=== PATIENT | male | born 1945 | race Caucasian/White ===

== ENCOUNTER → 2018-02-11 13:31 | Outpatient (CLI) | payer MEDICARE, SELFPAY ==
--- NOTE | 2018-02-11 13:31 | DT_ITS ---
This patient was seen during an EMR downtime February 11, 2018 - February 18, 2018. This patient may have a combination of paper and electronic documentation or all paper documentation. All documentation is viewable within the e-chart portion of [email or web address] for each patient visit.
--- NOTE | 2018-02-11 14:30 | CT_ITS ---
STUDY: CT ABDOMEN AND PELVIS WITH CONTRAST REASON FOR EXAM: Male, 72 years old. History of rectal cancer with radiation and chemotherapy. Follow-up exam. RADIATION DOSAGE (If Supplied By Facility): CTDIvol = ( 19.91 ) mGy, DLP = ( 1240.17 ) mGycm TECHNIQUE: Transaxial images were obtained from the dome of the diaphragm to the symphysis pubis with oral contrast. 100ml ml of Isovue 300 contrast was administered. Sagittal and coronal images were reconstructed. Individualized dose optimization techniques were used for this CT. COMPARISON: 08/23/2017. FINDINGS: The visualized portions of the lung bases demonstrate again 6 mm noncalcified nodule in the right middle lobe unchanged since prior examination. The visualized portions of the heart are within normal limits. There is a vague 4 mm in size low-density lesion in the right lobe of the liver seen on image 19 series 2 and difficult to characterize and may represent small cyst. Normal gallbladder and extrahepatic biliary system. Normal spleen. There is a 9 mm low-density lesion in the distal tip of the pancreas unchanged since previous examination of 2016 and likely representing small benign cyst. There is another lesion in the tail of the pancreas measuring about 6 mm again unchanged. Please note that the tail of the pancreas and the previous examinations is suboptimally visualized. The adrenal glands are unchanged. There again is a small cyst in the upper pole of the right kidney unchanged. There is another small low-density lesion/cyst in the lower pole right kidney again unchanged. Mild right perinephric stranding is seen unchanged. There again is a 2.5 cm cyst in the upper pole of the left kidney. There is a 1.5 cm lesion in the posterior aspect of the left kidney unchanged since the prior examination. It could represent hyperdense cyst. Correlation with renal ultrasound is recommended. Normal visualized stomach. Normal small intestine. There is fecal retention. Surgical sutures in the rectosigmoid junction is again seen. There again is mild presacral stranding around the rectal region unchanged since prior examination. There is non-visualization of the appendix. There are mild atherosclerotic calcifications of the abdominal aorta. There is no evidence of aneurysm. Normal inferior vena cava. Few small retroperitoneal nodes are again seen unchanged. Normal urinary bladder. The prostate is prominent in size. There is a small umbilical hernia containing fat. The osseous structures are unchanged. There are mild degenerative changes in the low density of L5 vertebra unchanged. The osseous structures are better evaluated by bone scan. CT/Abdomen/Pelvis WITH Contrast IMPRESSION: No significant change since previous examination. Persistent mild pericecal stranding unchanged prior examination and may be related to radiation therapy. No new masses are seen. Persistent small left renal lesion stable since the previous exam and may represent hyperdense cyst. Correlation with renal ultrasound might be of value. Small liver lesion which may represent small cyst difficult to characterize on this exam. Further follow-up exam in 4-6 months is recommended. Electronically Signed: Maico Mckeon MD at 9:02 EDT Tel , Service support ,
[2018-02-16 12:35] LABS: ALB/GLOB Ratio 1.2 RATIO (0.9-2.4); AST(SGOT) 24 U/L (15-37); Alanine Aminotransfer ALT/SGPT 38 U/L (16-61); Albumin, Serum 4.1 g/dL (3.2-5.0); Alkaline Phosphatase 51 U/L (45-117); Anion Gap 7 (5-15); BUN 14 mg/dL (7-18); BUN/Creat Ratio 16.7 RATIO (10-20); Calcium,Total 8.8 mg/dL (8.5-10.1); Chloride 104 mmol/L (98-107); Creatinine, Serum 0.84 mg/dL (0.70-1.30); EST Glomerular Filtration Rate 96 mL/min (>60); Est Glom Filt Rate - Afr Amer 116 mL/min (>60); Globulin 3.3 g/dL (2.2-4.2); Glucose 94 mg/dL (74-106); Protein, Total 7.4 g/dL (6.4-8.2); Sodium Level 140 mmol/L (136-145)
[2018-02-16 12:38] LABS: Hematocrit 41.5 % (40-54); Hemoglobin 13.9 g/dl (13.0-16.5); Mean Corp Hgb Conc 33.5 g/gl (32-36); Mean Corpuscular Hgb 33.7 pg (27.0-32.0); Mean Corpuscular Volume 100.7 fL (80-94); Platelet Count 177 K/mm3 (150-450); RBC Distribution Width CV 14.5 % (11.6-14.6); RBC Distribution Width SD 52.4 fl (35.1-43.9); Red Blood Count 4.12 M/mm3 (4.6-6.2); White Blood Count 5.5 K/mm3 (4.4-11.0)
[2018-02-16 12:39] LABS: Absolute Lymphocyte Count 1.22 X10^3/ul (0.83-4.51); Absolute Neutrophil Count 2.9 X10^3/uL (2.0-7.7); Basophil# 0.05 X10^3/uL; Basophil% 0.9 % (0-1); Eosinophil# 0.21 X10^3/uL; Eosinophils% 3.8 % (0-5); Lymphocyte # 1.22 X10^3/ul (4.0); Lymphocyte % 22.3 % (19-41); Mean Platelet Vol. 12.4 fl (6.2-12.0); Monocyte# 1.05 X10^3/uL; Monocyte% 19.2 % (0-10); Neutrophil # 2.91 X10^3/uL (2.7-7.7); Neutrophil % 53.3 % (47-70); POSITIVE COUNT NO; POSITIVE DIFFERENTIAL NO; POSITIVE MORPHOLOGY NO
[2018-02-18 18:26] LABS: Carcinoembryonic Antigen 2139 1.3
[2018-02-24 14:39] LABS: CREATININE FINGERSTICK 1.06 mg/dL (0.70-1.30)
== END ==
PROVIDERS: Family Provider Preventive Medicine Occupational Medicine; PCP Preventive Medicine Occupational Medicine; Visit Provider Internal Medicine Medical Oncology
DX: C20 Malignant neoplasm of rectum (principal); N28.9 Disorder of kidney and ureter, unspecified; K76.9 Liver disease, unspecified
CPT/HCPCS: 74177; 80053; 82378; 85025; Q9967; A4216

== ENCOUNTER → 2018-05-23 06:23 | Outpatient (CLI) | payer MEDICARE, SELFPAY ==
--- NOTE | 2018-05-23 06:37 | MRI_ITS ---
STUDY: MRI BRAIN WITH AND WITHOUT CONTRAST REASON FOR EXAM: Male, 72 years old. Vertigo. Balance issues. History of colon carcinoma. TECHNIQUE: Standardized multiplanar fat and water weighted pulse sequences were obtained. 10 ml of Gadavist contrast material was administered intravenously for the contrast portion of the examination. COMPARISON: None. FINDINGS: No restricted diffusion to suspect acute or subacute ischemic infarct. No remote cortical-based ischemic infarct and no old lacunar ischemic infarcts. Normal ventricles and cisterns. No communicating or noncommunicating hydrocephalus. Multiple small subcortical white matter T2 FLAIR hyperintensity foci in both cerebral hemispheres are nonspecific. Considering his age, these may be secondary to microvascular disease. No midline shift and no mass effects. Normal bilateral basal ganglia. Normal thalami. There is no extra-axial fluid accumulation. Normal flow voids within the major intracranial circulation suggesting patency by spin echo criteria. Normal venous enhancement. There is no enhancing intra-axial or extra-axial abnormality. Normal sella turcica, pituitary gland, infundibular stalk, optic chiasm and hypothalamus. Normal tectal plate and pineal gland. Normal midbrain, prudencio and medulla. Normal cerebellum. Normal basal cisterns. Normal bilateral temporal bones. Normal bilateral internal auditory canals. No demonstrated orbital abnormality, within the constraints of a routine brain study. Normal visualized paranasal sinuses. Normal calvarium and skull base. Normal visualized soft tissue structures. C2-C3 posterior annular bulging disc with mild central canal stenosis. MRI/Brain W/WO Contrast IMPRESSION: 1. No MRI evidence of intracranial metastatic disease, acute ischemic infarct, subacute ischemic infarct or acute intracranial abnormality. 2. Small nonspecific subcortical white matter T2 FLAIR hyperintensity foci in both cerebral hemispheres. Considering his age, they are presumably secondary to microvascular disease. Electronically Signed: Taiwo Gunderson MD at 14:56 EDT , Service support ,
== END ==
PROVIDERS: Family Provider Preventive Medicine Occupational Medicine; PCP Preventive Medicine Occupational Medicine; Visit Provider Preventive Medicine Occupational Medicine
DX: R42 Dizziness and giddiness (principal)
CPT/HCPCS: 70553; A9585; A4216

== ENCOUNTER → 2018-06-17 13:11 | Outpatient (CLI) | payer MEDICARE, SELFPAY ==
--- NOTE | 2018-06-17 13:13 | CT_ITS ---
STUDY: CT ABDOMEN AND PELVIS WITH CONTRAST REASON FOR EXAM: Male, 72 years old. Rectal cancer status post colon resection RADIATION DOSAGE (If Supplied By Facility): CTDIvol = ( 16.61 ) mGy, DLP = ( 1266.01 ) mGycm TECHNIQUE: Transaxial images were obtained from the dome of the diaphragm to the symphysis pubis without oral contrast. 100 ml of Isovue 300 contrast was administered. Sagittal and coronal images were reconstructed. Individualized dose optimization techniques were used for this CT. COMPARISON: February 11, 2018 FINDINGS: Tiny nodule in right lower lobe measuring 4.5 mm. The visualized portions of the heart are within normal limits. Liver is fatty infiltrated. Tiny hypoattenuated density in the right lobe which is too small to characterize.. Normal gallbladder and extrahepatic biliary system. Normal spleen. There is a tiny cyst in the pancreatic tail possibly representing postinflammatory pseudocyst or cystadenoma Normal bilateral adrenal glands. There is no evidence for renal obstruction or ureteral calculus. 2 tiny cortical cysts in the right kidney. There is a simple cyst in left kidney as well as a small hemorrhagic cyst or solid cortical nodule measuring 1.36 cm Normal visualized stomach. Normal small intestine. Diverticular changes in the sigmoid colon without evidence for acute diverticulitis. Postsurgical changes status post resection of the rectum with minor stranding in the fat.. No evidence for acute appendicitis Mild atherosclerotic changes of the aorta without evidence for aneurysm Normal inferior vena cava. Tiny subcentimeter retroperitoneal nodes likely benign utilizing CT size criteria Normal urinary bladder. Small fat-containing umbilical hernia Lumbar spine demonstrates moderate spondylosis.. No significant change since prior exam CT/Abdomen/Pelvis WITH Contrast IMPRESSION: Status post resection of the rectum.. No evidence for retroperitoneal adenopathy or hepatic metastasis Bilateral renal cysts and hemorrhagic cyst or solid nodule on the left is stable since previous study Tiny hypoattenuated density in the right lobe which too small to characterize stable since previous exam Tiny nodule in the right lower lobe unchanged in size. Electronically Signed: Taiwo Vanessa MD at 21:56 EDT , Service support ,
== END ==
PROVIDERS: Family Provider Preventive Medicine Occupational Medicine; PCP Preventive Medicine Occupational Medicine; Referring Provider Internal Medicine Medical Oncology; Visit Provider Internal Medicine Medical Oncology
DX: C20 Malignant neoplasm of rectum (principal); Z90.49 Acquired absence of other specified parts of digestive tract
CPT/HCPCS: 74177; Q9967; A4216

== ENCOUNTER → 2018-12-16 | Outpatient (CLI) | payer MEDICARE, SELFPAY ==
[2018-06-20 13:46] VITALS: BMI 34.2
--- NOTE | 2018-12-16 13:08 | CT_ITS ---
STUDY: CT ABDOMEN AND PELVIS WITH CONTRAST REASON FOR EXAM: Male, 73 years old. Follow-up examination. Patient has a history of colon carcinoma. RADIATION DOSAGE (If Supplied By Facility): CTDIvol = ( 26.6 ) mGy, DLP = ( 1866.17 ) mGycm TECHNIQUE: Transaxial images were obtained from the dome of the diaphragm to the symphysis pubis without oral contrast. 100 IV Isovue 300 was administered. Sagittal and coronal images were reconstructed. Individualized dose optimization techniques were used for this CT. COMPARISON: Comparison is made with prior study dated June 17, 2018. FINDINGS: The visualized lung bases are unremarkable. The previously seen 4 mm nodule in the anterior aspect of the right middle lobe is not included on this examination. The visualized portions of the heart are within normal limits. There is decreased attenuation of the liver consistent with steatosis. Normal gallbladder and extrahepatic biliary system. Normal spleen. Normal pancreas. There is a small, circumscribed, smooth, low attenuation right adrenal mass, consistent with an adrenal adenoma. This measures 9.2 mm. Normal left adrenal gland. Normal right kidney. Stable small left renal cysts. Normal visualized stomach. Normal small intestine. There are scattered colonic diverticula consistent with diverticulosis. Anastomosis seen at the rectosigmoid junction. The appendix is visualized and appears normal. There is scattered atherosclerotic calcification of the abdominal aorta, without a demonstrated aneurysm. Normal inferior vena cava. There is borderline retroperitoneal lymphadenopathy with enlarged nodes no greater than 10mm in the short axis diameter. Normal urinary bladder. There is a small umbilical hernia containing fat. There are degenerative changes of the visualized lumbar spine. CT/Abdomen/Pelvis WITH Contrast IMPRESSION: Stable examination. Electronically Signed: Donta Boykin, at 15:46 EDT , Service support ,
[2018-12-16 14:26] LABS: CREATININE FINGERSTICK 0.9 mg/dL (0.70-1.30)
[2018-12-16 15:00] LABS: Absolute Lymphocyte Count 1.22 X10^3/ul (0.83-4.51); Absolute Neutrophil Count 3.5 X10^3/uL (2.0-7.7); Basophil# 0.03 X10^3/uL; Basophil% 0.5 % (0-1); Eosinophil# 0.19 X10^3/uL; Eosinophils% 3.2 % (0-5); Hematocrit 41.3 % (40-54); Hemoglobin 13.8 g/dl (13.0-16.5); Lymphocyte # 1.22 X10^3/ul (4.0); Lymphocyte % 20.6 % (19-41); Mean Corp Hgb Conc 33.4 g/gl (32-36); Mean Corpuscular Hgb 33.4 pg (27.0-32.0); Mean Platelet Vol. 11.5 fl (6.2-12.0); Monocyte# 0.98 X10^3/uL; Monocyte% 16.5 % (0-10); Neutrophil # 3.47 X10^3/uL (2.7-7.7); Neutrophil % 58.5 % (47-70); POSITIVE COUNT NO; POSITIVE DIFFERENTIAL NO; POSITIVE MORPHOLOGY NO; Platelet Count 150 K/mm3 (150-450); RBC Distribution Width CV 13.7 % (11.6-14.6); RBC Distribution Width SD 49.6 fl (35.1-43.9); Red Blood Count 4.13 M/mm3 (4.6-6.2); White Blood Count 5.9 K/mm3 (4.4-11.0)
[2018-12-16 15:21] LABS: ALB/GLOB Ratio 1.2 RATIO (0.9-2.4); AST(SGOT) 30 U/L (15-37); Alanine Aminotransfer ALT/SGPT 37 U/L (16-61); Albumin, Serum 3.9 g/dL (3.2-5.0); Alkaline Phosphatase 59 U/L (45-117); Anion Gap 5 (5-15); BUN 8 mg/dL (7-18); BUN/Creat Ratio 10.9 RATIO (10-20); Calcium,Total 8.9 mg/dL (8.5-10.1); Chloride 105 mmol/L (98-107); Creatinine, Serum 0.74 mg/dL (0.70-1.30); EST Glomerular Filtration Rate 112 mL/min (>60); Est Glom Filt Rate - Afr Amer 135 mL/min (>60); Globulin 3.3 g/dL (2.2-4.2); Glucose 117 mg/dL (74-106); Potassium 3.9 mmol/L (3.5-5.1); Protein, Total 7.2 g/dL (6.4-8.2); Sodium Level 137 mmol/L (136-145)
== END | disposition home or self-care (01) ==
PROVIDERS: Family Provider Preventive Medicine Occupational Medicine; PCP Preventive Medicine Occupational Medicine; Referring Provider Internal Medicine Medical Oncology; Visit Provider Internal Medicine Medical Oncology
DX: C20 Malignant neoplasm of rectum (principal); Z85.048 Personal history of other malignant neoplasm of rectum, rectosigmoid junction, and anus
CPT/HCPCS: 74177; 80053; 85025; Q9967

== ENCOUNTER → 2019-07-07 | Outpatient (CLI) | payer MEDICARE, SELFPAY ==
[2019-06-30 13:04] VITALS: BMI 34.3
--- NOTE | 2019-07-07 09:10 | CT_ITS ---
STUDY: CT CHEST WITH CONTRAST REASON FOR EXAM: Male, 73 years old. Follow-up colon cancer. Diarrhea. Mid abdominal pain and bloating. History of colon resection and rectal tumor removal. RADIATION DOSAGE (If Supplied By Facility): CTDIvol = ( 23.08 ) mGy, DLP = ( 3687.79 ) mGycm TECHNIQUE: Transaxial imaging was performed following intravenous administration of IV Isovue 300 100mL. Multiplanar coronal and sagittal images were reformatted. Individualized dose optimization techniques were used for this CT. COMPARISON: CT of the abdomen and pelvis, July 07, 2019. CT abdomen and pelvis, August 23, 2017. FINDINGS: There is a right jugular central venous catheter with tip in the distal superior vena cava. The lungs are well expanded. There is a 5 x 3.3 mm soft tissue density in the right middle lobe best seen on image 80 of series 6. The lungs appear otherwise clear. There is no demonstrated pleural abnormality. Normal heart and pericardium. There are calcifications of the coronary arteries. Normal mediastinum. Normal hilar regions. Normal enhanced pulmonary arteries. Normal aorta arch and descending thoracic aorta. There are degenerative changes of the thoracic spine. Question mild fatty infiltration of the liver. There is a cyst in the upper pole of the left kidney. A small cyst is seen in the tail of the pancreas. CT/Chest WITH Contrast IMPRESSION: 1. Stable soft tissue density in the right middle lobe. This is noted on the August 23, [address] 2. No other evidence of intrathoracic abnormality. 3. Stable pancreatic and left renal cysts. 4. Stable fatty infiltration of the liver. Electronically Signed: Bj Sneed DO at 17:16 EDT Tel [phone], Service support ,
--- NOTE | 2019-07-07 09:10 | CT_ITS ---
STUDY: CT ABDOMEN AND PELVIS WITH CONTRAST REASON FOR EXAM: Male, 73 years old. Follow-up colon cancer. RADIATION DOSAGE (If Supplied By Facility): CTDIvol = ( 23.08 ) mGy, DLP = ( 3687.79 ) mGycm TECHNIQUE: Transaxial images were obtained from the dome of the diaphragm to the symphysis pubis without oral contrast. IV Isovue 300 100mL was administered. Sagittal and coronal images were reconstructed. Individualized dose optimization techniques were used for this CT. COMPARISON: CT of the chest, July 07, 2018. CT of the abdomen and pelvis, December 16, 2018. FINDINGS: There is a stable 5 x 3 x 3 mm soft tissue nodule in the right middle lobe. The lungs are otherwise clear. The visualized portions of the heart are within normal limits. Liver appears mildly fatty infiltrated. There is a small hypodensity in the lateral aspect of segment 7 of the liver which is unchanged from prior study and thought to represent a small cyst. There is no enhancing mass. Normal gallbladder and extrahepatic biliary system. Normal spleen. There is a small stable cyst in the tail of an otherwise normal pancreas. Normal bilateral adrenal glands. There are small cortical cysts in the upper pole the right kidney. A small exophytic cyst is seen off the lower pole. There is minimal stranding of the perinephric fat. There is no enhancing mass, renal calculi or hydronephrosis. Normal right ureter. There is a large cyst off the upper pole of the left kidney unchanged from prior study. There is a stable cyst off the posterior mid kidney. No enhancing mass renal calculi or hydronephrosis. Normal left ureter. Normal visualized stomach. Normal small intestine. There is a surgical anastomosis in the rectosigmoid colon unchanged from prior study. The remainder of the colon appears grossly normal The appendix is visualized and appears normal. There is diffuse atherosclerotic calcification of the abdominal aorta, without a demonstrated aneurysm. Normal inferior vena cava. There are some centimeter nonspecific left periaortic lymph nodes which are stable compared to the prior study. There is circumferential wall thickening of the urinary bladder without mass or filling defect. This appears to be a stable finding. There is enlargement of the prostate. There is no pelvic lymphadenopathy. No free air or free fluid is seen within the peritoneal cavity. Umbilical hernia of omental fat. There is a midline lower abdominal surgical scar. There are diffuse degenerative changes of the visualized lumbar spine. CT/Abdomen/Pelvis W IV Cont ONLY IMPRESSION: 1. No recurrence or metastatic disease. 2. No change from December 16, 2018. Electronically Signed: Bj Sneed DO at 17:23 EDT Tel [phone], Service support ,
--- NOTE | 2019-07-07 09:45 | RAD_ITS ---
STUDY: X-RAY - ESOPHAGUS (BARIUM SWALLOW) WITH FLUOROSCOPY REASON FOR EXAM: Male, 73 years old. Worsening dysphagia. TECHNIQUE: 17 view(s) of the esophagus were obtained following swallowing of barium. FLUOROSCOPY TIME (if supplied): (0:34) minutes/seconds COMPARISON: None. FINDINGS: A right-sided portacatheter is seen with the tip in the superior vena cava. There is no demonstrated esophageal foreign body. There is no demonstrated stricture or mucosal abnormality. Normal gastroesophageal junction, without a demonstrated hiatal hernia. The patient ingested a 12 mm tablet of barium without any difficulty. Normal visualized aortic arch and descending thoracic aorta. Normal visualized pulmonary parenchyma. Normal visualized osseous structures of the thorax. RAD/Esophagus Only IMPRESSION: Normal plain film x-ray examination (barium swallow) of the esophagus. Electronically Signed: Donta Boykin, at 9:20 EDT , Service support ,
== END | disposition home or self-care (01) ==
LOC: RAD 09:08
PROVIDERS: Family Provider Preventive Medicine Occupational Medicine; PCP Preventive Medicine Occupational Medicine; Referring Provider Nurse Practitioner Family; Visit Provider Nurse Practitioner Family
DX: C20 Malignant neoplasm of rectum (principal); R13.10 Dysphagia, unspecified
CPT/HCPCS: 71260; 74177; 74220; Q9967; A4216

== ENCOUNTER → 2020-10-27 13:38 | Outpatient (CLI) | payer MEDICARE, SELFPAY ==
[2019-10-15 14:39] VITALS: BMI 33.3
--- NOTE | 2020-10-27 13:40 | CT_ITS ---
STUDY: CT ABDOMEN AND PELVIS WITH CONTRAST REASON FOR EXAM: Male, 74 years old. Colon cancer surveillance, no new problems. Prior partial colectomy, renal cyst removed, IVC filter with revision, Power Port. RADIATION DOSAGE (If Supplied By Facility): CTDIvol = ( 19.85 ) mGy, DLP = ( 2162.36 ) mGycm TECHNIQUE: Transaxial images were obtained from the dome of the diaphragm to the symphysis pubis with oral contrast. Oral and amp; IV Readi-CAT and amp; 100mL Isovue-300 was administered. Sagittal and coronal images were reconstructed. Individualized dose optimization techniques were used for this CT. COMPARISON: Comparison is made with prior study dated 07/07/2019. FINDINGS: The visualized lung bases are unremarkable. The visualized portions of the heart are within normal limits. Stable 5 mm cyst in the lateral aspect of the right lobe of the liver. Normal gallbladder and extrahepatic biliary system. Normal spleen. Normal pancreas. Normal bilateral adrenal glands. 1 cm cyst in the upper pole of the right kidney. There is a 2.3 cm cyst in the posterior upper pole of the left kidney. There is a small hiatal hernia. Normal small intestine. Surgical anastomosis is seen in the rectosigmoid colon. This is unchanged. The appendix is visualized and appears normal. There is scattered atherosclerotic calcification of the abdominal aorta, without a demonstrated aneurysm. Normal inferior vena cava. There is borderline retroperitoneal lymphadenopathy with enlarged nodes no greater than 10mm in the short axis diameter. Normal urinary bladder. There is a small umbilical hernia containing fat. There are diffuse degenerative changes of the visualized lumbar spine. CT/Abdomen/Pelvis WITH Contrast IMPRESSION: Stable examination. Electronically Signed: Donta Boykin MD at 14:49 EST , Service support ,
--- NOTE | 2020-10-27 13:40 | CT_ITS ---
STUDY: CT CHEST WITH CONTRAST REASON FOR EXAM: Male, 74 years old. Colon cancer surveillance, no new problems. Prior partial colectomy, renal cyst removed, IVC filter with revision, Power Port. RADIATION DOSAGE (If Supplied By Facility): CTDIvol = ( 19.85 ) mGy, DLP = ( 2162.36 ) mGycm TECHNIQUE: Transaxial imaging was performed following intravenous administration of Oral and amp; IV Readi-CAT and amp; 100mL Isovue-300. Multiplanar coronal and sagittal images were reformatted. Individualized dose optimization techniques were used for this CT. COMPARISON: Comparison is made with prior examination of 07/07/2019. FINDINGS: A right-sided portacatheter is seen with the tip in the superior vena cava. Stable 6 mm noncalcified nodule in the anterior aspect of the right middle lobe as seen on axial image #80. There is no demonstrated pleural abnormality. Normal heart and pericardium. Normal mediastinum. Normal hilar regions. Normal enhanced pulmonary arteries. Normal aorta arch and descending thoracic aorta. There are multi-level degenerative changes of the thoracic spine. 2.5 cm cyst in the upper posterior aspect of the left kidney. CT/Chest WITH Contrast IMPRESSION: Stable examination. Electronically Signed: Donta Boykin MD at 14:46 EST , Service support ,
[2020-10-27 13:51] LABS: CREATININE FINGERSTICK 1.1 mg/dL (0.70-1.30)
[2020-10-27] MEDS: 0.9% Saline Lock 10 ML Syringe IV (13:59)
== END ==
PROVIDERS: PCP Preventive Medicine Occupational Medicine; Referring Provider Internal Medicine Medical Oncology; Visit Provider Internal Medicine Medical Oncology
DX: C20 Malignant neoplasm of rectum (principal); Z85.048 Personal history of other malignant neoplasm of rectum, rectosigmoid junction, and anus
CPT/HCPCS: 71260; 74177; Q9967; A4216

== ENCOUNTER 2021-11-03 13:15 | Outpatient (CLI) | payer MEDICARE, SELFPAY ==
--- NOTE | 2021-11-03 13:17 | CT_ITS ---
STUDY: CT ABDOMEN AND PELVIS WITH CONTRAST REASON FOR EXAM: Male, 75 years old. MONITOR RECTAL CANCER RADIATION DOSAGE (If Supplied By Facility): CTDIvol = ( 18.01 ) mGy, DLP = ( 1255.65 ) mGycm TECHNIQUE: Transaxial images were obtained from the dome of the diaphragm to the symphysis pubis without oral contrast. IV 100mL Isovue-300 was administered. Sagittal and coronal images were reconstructed. Individualized dose optimization techniques were used for this CT. COMPARISON: Comparison is made with prior study dated 10/27/2020. FINDINGS: The visualized lung bases are unremarkable. The visualized portions of the heart are within normal limits. There is decreased attenuation of the liver consistent with steatosis. Stable 5 mm cyst in the lateral aspect the right lobe of the liver. Normal gallbladder and extrahepatic biliary system. Normal spleen. Normal pancreas. Normal bilateral adrenal glands. 1 cm cyst is seen in the upper pole of the right kidney. Stable 2.3 cm cyst in the posterior upper pole of the left kidney. Normal visualized stomach. Normal small intestine. Surgical anastomosis seen at the rectosigmoid junction. This is unchanged. The appendix is visualized and appears normal. There is scattered atherosclerotic calcification of the abdominal aorta, without a demonstrated aneurysm. Normal inferior vena cava. There is borderline retroperitoneal lymphadenopathy with enlarged nodes no greater than 10mm in the short axis diameter. Diffuse mild degree of bladder wall thickening. Prostate measures 4.47 x 4.2 cm. There is a small umbilical hernia containing fat. There are mild degenerative changes of the visualized lumbar spine. CT/Abdomen/Pelvis WITH Contrast IMPRESSION: Stable examination. Electronically Signed: Donta Boykin MD at 15:28 EST ,
[2021-11-03 13:36] LABS: CREATININE FINGERSTICK 0.9 mg/dL (0.70-1.30); EGFR FINGERSTICK > 60.0000 mL/min (>60)
== END 2021-11-03 23:59 | disposition home or self-care (01) ==
LOC: CT 13:16
PROVIDERS: PCP Preventive Medicine Occupational Medicine; Referring Provider Internal Medicine Medical Oncology; Visit Provider Internal Medicine Medical Oncology
DX: C20 Malignant neoplasm of rectum (principal)
CPT/HCPCS: 74177; Q9967; A4216

== ENCOUNTER 2024-08-06 13:41 | Emergency (ER) | payer MEDICARE, SELFPAY ==
[2024-08-06] VITALS (53 sets, daily range): BP systolic 57–108; BP diastolic 24–69; PULSE 101–148; RESP 10–36; TEMP 36.4–37.4; O2SAT 93–100; BMI 27.0
[2024-08-06] MEDS: 0.9% Normal Saline (1000mL) 1,000 ML 1000 ML IV ×2 (14:08→15:03)
[2024-08-06] MEDS: Ondansetron 4 MG/2 ML Vial IV (14:09)
[2024-08-06 14:17] LABS: Absolute Lymphocyte Count 1.68 X10^3/uL (0.83-4.51); Absolute Neutrophil Count 17.5 X10^3/uL (2.0-7.7); Basophil# 0.06 X10^3/uL; Basophil% 0.3 % (0-1); Eosinophil# 0.01 X10^3/uL; Hematocrit 29.4 % (40-54); Hemoglobin 9.8 g/dL (13.0-16.5); Lymphocyte # 1.68 X10^3/ul (0.83-4.51); Lymphocyte % 7.9 % (19-41); Mean Corp Hgb Conc 33.3 g/dL (32-36); Mean Corpuscular Hgb 31.8 pg (27.0-32.0); Mean Corpuscular Volume 95.5 fL (80-94); Mean Platelet Vol. 11.1 fl (6.2-12.0); Monocyte# 1.73 X10^3/uL; Monocyte% 8.1 % (0-10); NRBC Flagged by Analyzer 0 % (0-5); Neutrophil # 17.51 X10^3/uL (2.7-7.7); POSITIVE DIFFERENTIAL YES; Platelet Count 475 K/mm3 (150-450); RBC Distribution Width CV 13.4 % (11.6-14.6); RBC Distribution Width SD 47.2 fl (35.1-43.9); Red Blood Count 3.08 M/mm3 (4.6-6.2); White Blood Count 21.4 K/mm3 (4.4-11.0)
[2024-08-06 14:21] LABS: Differential Indicated SCAN CRITERIA MET
[2024-08-06 14:25] LABS: Prothrombin Time (Protime)PT. 41.8 SECONDS (11.7-14.9)
--- NOTE | 2024-08-06 14:25 | RAD_ITS ---
EXAM: XR CHEST, 1 VIEW CLINICAL INDICATION: hypotension TECHNIQUE: Frontal view of the chest. COMPARISON: No relevant prior studies available. FINDINGS: LUNGS AND PLEURAL SPACES: Pulmonary vessels are quite small in size suggesting patient dehydration/hypovolemia. No airspace opacification of the lungs. No pleural effusion or pneumothorax. HEART: Normal heart size. MEDIASTINUM: No mediastinal or hilar mass. BONES/JOINTS: No acute abnormality. TUBES, LINES AND DEVICES: Right internal jugular central venous catheter tip in the mid superior vena cava. RAD/Chest 1 View (Portable) IMPRESSION: No acute cardiopulmonary abnormality. As above. Electronically Signed: Kavon Dyer MD at 14:53 EST ,
[2024-08-06 14:26] LABS: Partial Thromboplast Time 86.7 Seconds (24.1-36.2)
[2024-08-06 14:28] LABS: International Normalized Ratio 4.4
[2024-08-06 14:35] LABS: AST(SGOT) 15 U/L (15-37); Alanine Aminotransfer ALT/SGPT 26 U/L (16-61); Alkaline Phosphatase 72 U/L (45-117); Anion Gap 12 (5-15); BUN 20 mg/dL (7-18); BUN/Creat Ratio 12.9 RATIO (10-20); Bilirubin, Direct 0.25 mg/dL (0.00-0.30); Chloride 95 mmol/L (98-107); Creatinine, Serum 1.55 mg/dL (0.70-1.30); EST Glomerular Filtration Rate 47 mL/min (>60); Est Glom Filt Rate - Afr Amer 56 mL/min (>60); Globulin 3.9 g/dL (2.2-4.2); Glucose 316 mg/dL (74-106); Lipase 23 U/L (13-75); Potassium 4.8 mmol/L (3.5-5.1); Protein, Total 6.9 g/dL (6.4-8.2); Sodium Level 128 mmol/L (136-145); Troponin-I HS 13 pg/mL (3.0-78.0)
[2024-08-06 14:40] LABS: BNP,B-Type NATRIURETIC PEPTIDE 103.7 pg/mL (0-100)
[2024-08-06 14:41] LABS: Differential Comment SCANNED; Platelet Estimate SLT INC (ADEQ); Red Cell Morphology NORM C+C NORMAL (NORM C&C)
--- NOTE | 2024-08-06 14:46 | CT_ITS ---
EXAM: CT ABDOMEN AND PELVIS WITHOUT INTRAVENOUS CONTRAST CLINICAL INDICATION: hypotension right abdominal pain TECHNIQUE: Helically acquired images were obtained of the abdomen and pelvis without intravenous contrast. This CT exam was performed using one or more of the following dose reduction techniques: automated exposure control, adjustment of the mA and/or kV according to patient size, and/or use of iterative reconstruction technique. COMPARISON: CT Abdomen Pelvis dated 11/03/2021 FINDINGS: LOWER THORAX: Normal. Lung bases are clear. No cardiomegaly. No pericardial effusion. ABDOMEN: LIVER: Normal. Homogeneous. GALLBLADDER AND BILE DUCTS: Normal. No calcified gallstones. No gallbladder distention or wall edema. No intra- or extrahepatic biliary ductal dilation. PANCREAS: Normal. No focal cystic mass. SPLEEN: Normal. Normal size without focal cystic or solid mass. ADRENALS: Normal. No nodules. KIDNEYS AND URETERS: Right kidney is displaced anteriorly and to the right-sided retroperitoneal hematoma. STOMACH AND BOWEL: Surgical anastomosis along the proximal rectum again seen. Diverticulosis of the colon noted without evidence of acute diverticulitis. PELVIS: APPENDIX: No evidence of acute appendicitis. BLADDER: Cutler catheter in place within a decompressed urinary bladder. REPRODUCTIVE: Unremarkable as visualized. No mass. ABDOMEN and PELVIS: INTRAPERITONEAL SPACE: A small amount of free fluid noted within the peritoneal cavity superior to the urinary bladder. No free air. RETROPERITONEAL SPACE: 15.1 x 9.0 x 6.7 cm complex collection located within the right posterior pararenal space demonstrating hematocrit level consistent with large retroperitoneal hematoma. BONES/JOINTS: No acute fracture or subluxation. Stable degenerative changes noted within the lumbar spine. SOFT TISSUES: Small hematoma also noted within the right psoas muscle. Small fat-containing umbilical hernia is present. VASCULATURE: Normal. Abdominal aorta is non-dilated. LYMPH NODES: Normal. No enlarged lymph nodes. CT/Abdomen/Pelvis without Cont IMPRESSION: 1. Large retroperitoneal hematoma involving the right posterior pararenal space. 2. Small right psoas muscle hematoma. Electronically Signed: Kavon Dyer MD at 15:25 EST ,
[2024-08-06 14:47] LABS: Lactic Acid 5.5 mmol/L (0.4-1.9)
--- NOTE | 2024-08-06 15:22 | EDS_ITS ---
HPI History of Present Illness Chief Complaint: Abd Pain Informant: patient and EMS Narrative Narrative: 78-year-old male presenting from care home facility with the chief complaint of right-sided abdominal pain. Patient is a exceptionally poor historian. He states that he was recently admitted to the hospital following a stroke. He states he was seen at [facility]. I was able to obtain their notes and see that he was admitted with alcohol dependence following a fall and being on the ground for unknown period of time is found to be in rhabdomyolysis. His admission date was 1022 and at that time had a CPK of greater than 7000 and a creatinine of 1.46 and a hemoglobin of 15.4. He has also having right hip pain and eventually had an MRI of that hip while he was inpatient which demonstrated a anterior superior acetabular labral tear. On 1024 he had a hemoglobin of 12.4 presumed down due to IV hydration at 1031 he had an INR of 1.5. He is reportedly on outpatient warfarin due to longstanding clotting disorder. There has not been any recent falls. He states that his right arm and leg do not move as well as they once did before my stroke. It is unclear of when the patient is referred. To regarding his stroke. He points to the right flank right lateral abdomen as the area that hurts him. Nursing notes and initial blood pressure 64/42 with a heart rate of 148. [facility] Medical History Colorectal cancer med port placement Renal cyst Protein S deficiency Hypothyroidism History of pulmonary embolism Edema Diabetes History of blood transfusion Home Medications ?Medication ?Instructions ?Recorded ?Last Taken ?Type metformin 500 mg tablet 500 mg PO DAILY 04/24/16 06/27/16 History magnesium 200 mg tablet 400 mg PO 4X/DAY 07/03/16 Unknown History warfarin 10 mg tablet 4 mg PO DAILY 01/22/17 Unknown History meclizine 12.5 mg tablet 12.5 mg PO TID PRN dizziness or 01/09/23 Unknown History vertigo enoxaparin 100 mg/mL subcutaneous 90 mg subcut Q12H 08/06/24 Unknown History syringe folic acid 1 mg tablet 1 mg PO DAILY 08/06/24 Unknown History guaifenesin 600 mg tablet, 1,200 mg PO Q12H 08/06/24 Unknown History extended release 12 hr metoprolol succinate 50 mg 50 mg PO DAILY 08/06/24 Unknown History tablet,extended release 24 hr omeprazole 20 mg capsule,delayed 20 mg PO DAILY 08/06/24 Unknown History release polyethylene glycol 3350 17 17 g PO DAILY 08/06/24 Unknown History gram/dose oral powder (LaxaClear) thiamine HCl (vitamin B1) 100 mg 100 mg PO DAILY 08/06/24 Unknown History tablet Allergy/AdvReac Type Severity Reaction Status Date / Time iodine Allergy UNKNOWN Verified 08/06/24 13:50 testosterone AdvReac Severe Other Verified 08/06/24 13:50 doxycycline (From Vibramycin) AdvReac Intermediate Rash Verified 08/06/24 13:50 Family History Father CVA (cerebral vascular accident) Hypertension Mother Hypertension Surgical History History of colon resection History of rectal surgery Social History Smoking Status: Never smoker ROS ROS ED Constitutional Constitutional ED: Denies chills, fever(s) or weight loss Eyes Eyes: Denies change in vision or diplopia ENT ENT ED: Denies ear pain, rhinorrhea or sore throat Cardiovascular Cardiovascular: Denies chest pain, orthopnea, palpitations or racing heartbeat Respiratory/Chest Respiratory/Chest: Denies cough, dyspnea or orthopnea Gastrointestinal Gastrointestinal: Reports abdominal pain, nausea and vomiting; Denies diarrhea Genitourinary Genitourinary ED: Denies dysuria, hematuria or urinary frequency Musculoskeletal Musculoskeletal: Reports back pain and other Details: Right hip pain ; Denies arthralgias or myalgias Integumentary Denies abscess or rash Neurologic Neurologic: Denies headache(s) or weakness Psychiatric Psychiatric: Denies anxiety, depression, suicidal ideation or suicidal thoughts Endocrine Endocrinology: Denies polydipsia, polyphagia or polyuria Allergic/Immunologic Allergic/Immunologic ED: Denies mouth swelling, tongue swelling or urticaria EXAM Physical Exam Narrative Exam Narrative: Patient appears pale slightly diaphoretic and weak. He is however speaking and alert Const Vital Signs: 08/06/24 13:42 08/06/24 13:45 08/06/24 14:06 Temperature 98.8 F Temperature Source Oral Pulse Rate 148 H 144 H 128 H Respiratory Rate 36 H Blood Pressure 64/42 L 73/52 L 57/45 L Blood Pressure Mean 49 59 49 Pulse Ox 96 Oxygen Delivery Method Nasal Cannula 08/06/24 14:38 08/06/24 14:45 08/06/24 15:00 Temperature 98.8 F 99.1 F 99.3 F H Temperature Source Core Core Core Pulse Rate 126 H 124 H 104 H Respiratory Rate 24 H 26 H 13 Blood Pressure 76/53 L 87/60 L 98/61 Blood Pressure Mean 60 69 73 Pulse Ox 93 100 100 Oxygen Delivery Method Room Air Room Air Room Air 08/06/24 15:33 08/06/24 16:00 Temperature 99 F 98.7 F Temperature Source Core Core Pulse Rate 113 H 106 H Respiratory Rate 22 H 22 H Blood Pressure 94/63 98/63 Blood Pressure Mean 73 74 Pulse Ox 100 96 Oxygen Delivery Method Room Air Room Air Positive well nourished and well developed General Appearance ED: well developed and pallor HEENT Reports normocephalic, head/scalp atraumatic and moist mucous membranes Eyes PERRL and EOMs intact bilaterally Neck no lymphadenopathy, supple and no JVD Resp normal respiratory effort and clear to auscultation bilaterally Cardio regular rate, regular rhythm and no murmurs Rate: tachycardic GI GI Narrative: Patient with right flank right lateral abdominal tenderness Auscultation: normoactive bowel sounds Palpation: soft, tender and guarding Back/Spine no CVA tenderness and normal ROM Extremity General Extremety ED: Negative for edema General Extremity: Negative for edema Neuro oriented x3 and CN's II-XII intact bilaterally Neuro Narrative: Right leg right arm weak compared to the left Sensorium / Orientation: alert Psych mental status grossly normal Mood & Affect: Negative for depressed or tearful Skin no wounds General Skin Exam: pallor MDM MDM MDM Narrative Medical decision making narrative: Differential diagnosis is quite broad including but not limited to cardiac dysrhythmia bacteremia sepsis pyelonephritis retroperitoneal hematoma liver renal laceration/trauma ureterolithiasis colitis acute cholecystitis appendicitis septic acute anemia A lot of the history obtained in this case has been piecemealed from online resources and taken through the patient's prior chart as he himself cannot tell me much history. I am able to find late in his ED course that he has a protein S deficiency thus complicating the need to reverse his anticoagulation in the setting of hypovolemic shock while in a chronic hypercoagulable state. Patient has a right chest port from reported prior colon cancer history. This was accessed white count showing 21.4 hemoglobin 9.8 platelet count of 475 INR supratherapeutic at 4.4 PTT 86.7 his creatinine 1.5 BUN of 20 sodium 128 lipase is 23 troponin 13 BNP 103.7 lactic acid elevated 5.5 glucose 316. My independent interpretation of the chest x-ray is no acute process. CT then pelvis without IV contrast was obtained on an emergent basis due to the hypotension and without contrast due to reported possible iodine/contrast allergy. Upon my review there appears to be a large retroperitoneal hematoma in the right. Because of the supratherapeutic INR patient received FFP as well as vitamin K. I called the [facility] to find out when his last dose of Lovenox was at 0900 today. Patient received a dose of protamine after discussion with pharmacist. Case was discussed locally with our hospitalist who is in agreement with transfer to tertiary care for a facility that has IR should he require it. I discussed it with the patient and he is requesting [facility]. I discussed the case with the transfer line and then the hospitalist. We also discussed the case with MICU. Patient has been accepted by the hospitalist to [facility] And we are currently awaiting bed. Should the patient's blood pressure decline or there be any further significant change in his care [facility] Will be updated which may result in a bed change. History & Record Review Discussion w/independent historian: EMS personnel and Patient Additional record(s) reviewed:: Prior inpatient record, Prior outpatient record, Prior ED visit and Prior labs Lab Data Attestation: I reviewed the patient's lab results. Labs: Laboratory Results - last 24 hr 08/06/24 08/06/24 13:55 15:55 WBC 21.4 H RBC 3.08 L Hgb 9.8 L 8.1 L Hct 29.4 L 24.1 L MCV 95.5 H MCH 31.8 MCHC 33.3 RDW Std Deviation 47.2 H RDW Coeff of Lotus 13.4 Plt Count 475 H MPV 11.1 Immature Gran % (Auto) 1.700 H Neut % (Auto) 82.0 H Lymph % (Auto) 7.9 L [place] % (Auto) 8.1 Eos % (Auto) 0.0 Baso % (Auto) 0.3 Absolute Neuts (auto) 17.5 H Absolute Lymphs (auto) 1.68 Nucleated RBC % 0 Differential Comment SCANNED Diff Path Review May foll Platelet Estimate SLT INC RBC Morphology NORM C+C PT 41.8 H INR 4.4 H* APTT 86.7 H Sodium 128 L Potassium 4.8 Chloride 95 L Carbon Dioxide 21.0 Anion Gap 12 BUN 20 H Creatinine 1.55 H Estim Creat Clear Calc 44.50 Est GFR (MDRD) Af Amer 56 L Est GFR (MDRD) Non-Af 47 L BUN/Creatinine Ratio 12.9 Glucose 316 H Lactic Acid 5.5 H* Calcium 9.0 Total Bilirubin 0.70 Direct Bilirubin 0.25 AST 15 ALT 26 Alkaline Phosphatase 72 Troponin I High Sens 13 B-Natriuretic Peptide 103.7 H Total Protein 6.9 Albumin 3.0 L Globulin 3.9 Lipase 23 Radiography Diagnostic Testing: Clinical Impression(s) from Imaging Studies Chest X-Ray 08/06/24 14:25 IMPRESSION: No acute cardiopulmonary abnormality. As above. Electronically Signed: Kavon Dyer MD at 14:53 EST , Abdomen/Pelvis CT 08/06/24 14:46 IMPRESSION: 1. Large retroperitoneal hematoma involving the right posterior pararenal space. 2. Small right psoas muscle hematoma. Electronically Signed: Kavon Dyer MD at 15:25 EST , EKG Initial EKG: Attestation: I personally reviewed and interpreted this EKG as follows: Comments: Sinus tachycardia ventricular rate of 135 bpm Management Discussion w/another healthcare provider: Hospitalist (Dr. Zamora ([facility])) and Pharmacist Critical Care Time Critical Care Time: Yes Critical care time (excluding procedures): 30-74 minutes (35 min), Including time spent:, Discussing w/Patient &/or Family/Drug Department Worker, Discussing w/Consultants, Arranging Admission or Transfer and Performing Direct Patient Care at Bedside Discharge Plan Triage Chief Complaint: Abd Pain ED Provider: Thom Arvizu Dx/Rx/DC Orders Clinical Impression: Acute hypotension, Retroperitoneal hematoma, Supratherapeutic INR, Acute anemia, Protein S deficiency, Leukocytosis Prescriptions: No Action meclizine 12.5 mg Tablet 12.5 mg PO TID PRN (Reason: dizziness or vertigo) metformin 500 MG tablet 500 mg PO DAILY Patient Comments: OFF FOR 2 DAYS D/T CONTRAST GIVEN IN PROCEDURE 06/28 magnesium 200 MG tablet 400 mg PO 4X/DAY warfarin 10 MG tablet 4 mg PO DAILY enoxaparin 100 mg/mL syringe 90 mg subcut Q12H folic acid 1 mg tablet 1 mg PO DAILY guaifenesin 600 mg tablet extended release 12hr 1,200 mg PO Q12H metoprolol succinate 50 mg tablet extended release 24 hr 50 mg PO DAILY omeprazole 20 mg capsule,delayed release(DR/EC) 20 mg PO DAILY polyethylene glycol 3350 [LaxaClear] 17 gram/dose powder 17 g PO DAILY thiamine HCl (vitamin B1) 100 mg tablet 100 mg PO DAILY Primary Care Provider: Isaiah Meek Referrals: Isaiah Meek MD [Primary Care Provider] - Print Language: Barbadian Disposition Disposition: Acute Care Hospital Discharge Location: [facility]
[2024-08-06] MEDS: Phytonadione (Vit K) 5 MG in 0.9% Normal Saline (50mL Bag) 50 ML 150 MG IV (15:26)
[2024-08-06 16:20] LABS: Hematocrit 24.1 % (40-54); Hemoglobin 8.1 g/dL (13.0-16.5)
[2024-08-06] MEDS: Protamine Sulfate 50 MG/5 ML Vial 90 MG IV (16:29)
[2024-08-06 16:44] LABS: Bacteria 0 SEEN /hpf (None Seen); Red Blood Cells-Urine 0 SEEN /hpf (0-5)
[2024-08-06 16:45] LABS: Color, Urine Yellow (Yellow); Glucose, Dipstick Normal (Normal); Ketone-Dipstick 5 mg/dl (Negative); Leukocyte Esterase-Dipstick 25 /ul (Negative); Nitrite-Dipstick Negative (Negative); Occult Blood-Urine 10 /ul (Negative); Protein-Dipstick 30 mg/dl (Negative); Urine Clarity Sl. Cloudy (Clear); Urine Urobilinogen 1 mg/dl (Normal)
--- NOTE | 2024-08-06 17:05 | ED.RN ---
Silvia Crews called and updated of pts transfer.
[2024-08-06 17:30] LABS: Urine Bilirubin Dipstick 1 mg/dL (Negative)
[2024-08-06 17:32] LABS: Mucous, Urine 1+ /hpf (<or=2+); Squamous Epithelial Cells - UA 0-5 SEEN /hpf (0-5); Transitional Epithelial - Ur 0-5 SEEN /hpf (0-5); White Blood Cells 0-5 SEEN /hpf (0-5)
[2024-08-06 17:33] LABS: Amorphous Sediment 1+; Renal Epithelial Cells 0-5 SEEN /hpf (0-5)
--- NOTE | 2024-08-06 17:41 | ED.RN ---
Pt not sepsis per ED MD, notified of need for post fluid note.
[2024-08-06 18:07] LABS: Reflex Lactate? Y
--- NOTE | 2024-08-06 19:21 | ED.RN ---
PT BED SICU [address] [facility]
--- NOTE | 2024-08-06 20:11 | ED.RN ---
2010: REPORT CALLED TO [facility] NURSE MARCIAL AT THIS TIME. NO FURTHER QUESTIONS BY THE RECEIVING NURSE AT THIS TIME.
--- NOTE | 2024-08-06 20:13 | ED.RN ---
LAB CALLED TO SEE IF BLOOD WAS READY. RESPONSE, YES. AT THIS TIME
--- NOTE | 2024-08-06 20:32 | ED.RN ---
TRANSPORT HERE FOR PT. I WAS INFORMED THAT THEY ARE UNABLE TO TAKE PT. IF BLOOD IN RUNNING. BLOOD IS IN THE UNIT AT THIS TIME. PROVIDER NOTIFIED OF CIRCUMSTANCES. TO AVOID DELAYING PT. CARE AND TRANSPORT. DR. HILLIARD SAID, HOLD THE BLOOD, PT. SHOULD BE FINE FOR TRANSPORT WITHOUT IT AT THIS TIME. BLOOD RETURNED BY A. SELF TO LAB.
--- NOTE | 2024-08-06 20:40 | ED.RN ---
2039: ATTEMPTED TO CALL PER PT. REPORT. NO ANSWER AT THIS TIME.
--- NOTE | 2024-08-06 21:50 | ED.RN ---
[facility] CALLED FOR PT. UPDATE, DR. PEGUERO.
[2024-08-08 13:42] LABS: Pathologist Review Reviewed
== END 2024-08-06 20:49 | disposition short-term general hospital (02) ==
PROVIDERS: Emergency Provider Emergency Medicine; PCP Family Medicine; Visit Provider Emergency Medicine
DX: I95.9 Hypotension, unspecified (principal); E11.9 Type 2 diabetes mellitus without complications; D72.829 Elevated white blood cell count, unspecified; D64.9 Anemia, unspecified; Z79.01 Long term (current) use of anticoagulants; Z79.899 Other long term (current) drug therapy; K68.3 Retroperitoneal hematoma; D68.59 Other primary thrombophilia
CPT/HCPCS: 36415; 36591; 51702; 71045; 74176; 80048; 80076; 81001; 83605; 83690; 83880; 84484; 85014; 85018; 85025; 85610; 85730; 86850; 86900; 86901; 86920; 86922; 87040; 87086; 93005; 96361; 96374; 96375; 99285; J7030; J7040; A4216; J2405; J3490; P9017